=== PATIENT | male | born 1985 ===

== ENCOUNTER 2022-08-07 10:40 | Emergency (ER) | payer OTHER ==
[~2022-08-07 10:40] MED LIST: Fluorescein 1 MG Ophth Strip ONE; Proparacaine 0.5% Ophth Soln 15 ML Bottle ONE
== END 2022-08-07 11:05 | disposition home or self-care (01) ==
LOC: VM.ED 10:40
DX: S05.02XA Injury of conjunctiva and corneal abrasion without foreign body, left eye, initial encounter (principal); W22.8XXA Striking against or struck by other objects, initial encounter
CPT/HCPCS: 99283